=== PATIENT | male | born 1955 | race Caucasian/White ===

== ENCOUNTER 2020-03-27 02:55 | Emergency (ER) | payer MEDICARE ==
[~2020-03-27] VITALS: Ht 182.9 cm; Wt 119.7 kg
== END 2020-03-27 14:49 | disposition expired ==
LOC: ER 03:11
DX: I46.9 Cardiac arrest, cause unspecified (principal); E11.9 Type 2 diabetes mellitus without complications; I10 Essential (primary) hypertension; Z85.07 Personal history of malignant neoplasm of pancreas; Z85.05 Personal history of malignant neoplasm of liver
CPT/HCPCS: 99283